=== PATIENT | female | born 1965 | race African-American/Black ===

== ENCOUNTER 2017-07-20 17:48 | Emergency (ER) | payer MEDICARE ==
[~2017-07-20] VITALS: Ht 157.5 cm; Wt 77.1 kg
[~2017-07-20 17:48] MED LIST: ASP81EC PO; ATOR20TA50 PO; CALC667C5 PO; CAR3125T PO; CLOP75TA28 PO; PANT40T PO
[2017-07-20 22:18] LABS: Basophils # (auto) 0 uL; Eosinophils # (auto) 0.4 uL; Hemoglobin 11.4 g/dL (12.2-16.2); Lymphocytes # (auto) 1.1 uL; Monocytes # (auto) 0.8 uL; White Blood Cell 5.9 10^3/uL (4.4-10.8)
[2017-07-20 22:25] LABS: Eosinophils % (auto) 6.1 % (0.0-7.0); Lymphocytes % (auto) 18.5 % (10.0-50.0); Monocytes % (auto) 13.2 % (0.0-12.0); Neutrophils % (auto) 61.5 % (37.0-80.0)
[2017-07-20 22:26] LABS: Basophils % (auto) 0.7 % (0.0-2.0); Hematocrit 33.9 % (36.0-46.0); Mean Corpuscular Hemoglobin 35.6 pg (28.0-32.0); Mean Corpuscular Volume 105.8 fL (80.0-100.0); Neutrophils # (auto) 3.6 uL; Nucleated Red Blood Cells % 0.4 %
[2017-07-20 22:27] LABS: Mean Corpuscular Hgb Conc. 33.6 g/dL (32.0-36.0); Mean Platelet Volume 10.7 fL (6.9-10.8); Platelet Count (auto) 86 10^3/uL (140-450); Red Cell Distribution Width 20.6 % (11.8-14.3)
[2017-07-20 22:39] LABS: Albumin 3.1 g/dL (3.4-5.0); BUN/Creatinine Ratio 5.6; Bilirubin, Total 2.8 mg/dL (0.2-1.0); Calcium 7.5 mg/dL (8.5-10.1); Potassium 3.8 mmol/L (3.5-5.1); Total Protein 7.5 g/dL (6.4-8.2)
[2017-07-20 22:46] LABS: INR 1.28 (0.9-1.15); Partial Thromboplastin Time 29.9 sec (22.64-33.71)
[2017-07-20 22:50] LABS: Anisocytosis Slight; Burr Cells FEW; Macrocytosis Moderate; Ovalocytes FEW; Platelet Estimate Decreased; Schistocytes FEW
[2017-07-21 00:49] VITALS: BP 104/66
== END 2017-07-21 02:30 | disposition home or self-care (01) ==
LOC: ER 18:20
DX: T82.898A Other specified complication of vascular prosthetic devices, implants and grafts, initial encounter (principal); I48.91 Unspecified atrial fibrillation; I25.2 Old myocardial infarction; I13.2 Hypertensive heart and chronic kidney disease with heart failure and with stage 5 chronic kidney disease, or end stage renal disease; I50.9 Heart failure, unspecified; N18.6 End stage renal disease; E11.22 Type 2 diabetes mellitus with diabetic chronic kidney disease; E78.5 Hyperlipidemia, unspecified; G89.29 Other chronic pain; M54.9 Dorsalgia, unspecified; E66.01 Morbid (severe) obesity due to excess calories; Z68.31 Body mass index [BMI] 31.0-31.9, adult; Z95.0 Presence of cardiac pacemaker; Z87.442 Personal history of urinary calculi; Z79.899 Other long term (current) drug therapy; Z99.2 Dependence on renal dialysis; Z86.73 Personal history of transient ischemic attack (TIA), and cerebral infarction without residual deficits; Z79.82 Long term (current) use of aspirin
CPT/HCPCS: 36415; 80053; 85025; 85610; 85730